=== PATIENT | female | born 1975 | race Caucasian/White ===

== ENCOUNTER 2017-03-02 18:36 | Inpatient (IN) | payer BC ==
[~2017-03-02] VITALS: Ht 170.2 cm; Wt 79.5 kg
[2017-03-02] MEDS: D5%-LACTATED RINGERS 1,000 ML IV SCH (19:18)
[2017-03-02] MEDS ORDERED: OXYTOCIN 30U/ 0.9% NaCL 500ML 500 ML IV ONE (19:18)
[2017-03-02] MEDS ORDERED: OXYTOCIN 30U/ 0.9% NaCL 500ML 500 ML IV PRN (19:18)
[2017-03-02] MEDS ORDERED: AMPICILLIN 2 GM in SODIUM CHLORIDE 0.9% 100 ML IVPB STA (19:18)
[2017-03-02] MEDS ORDERED: NEWBORN KIT ONE (19:27)
[2017-03-02] MEDS ORDERED: LIDOCAINE 1%, 20ML ONE (19:27)
[2017-03-02] MEDS ORDERED: OXYTOCIN 30U/ 0.9% NaCL 500ML 500 ML ONE (19:27)
[2017-03-02] MEDS ORDERED: MISOPROSTOL 200 MCG TABLET ONE (19:28)
[2017-03-02] MEDS ORDERED: FENTANYL PF 100 MCG/2ML IV PRN (19:30)
[2017-03-02] MEDS ORDERED: ONDANSETRON 2MG/ML, 2ML IVPush PRN (19:30)
[2017-03-02] MEDS: PLEASE ENTER HEIGHT AND WEIGHT MC SCH (19:30)
[2017-03-02] MEDS ORDERED: FENTANYL PF 100 MCG/2ML IVPush PRN (19:30)
[2017-03-02] MEDS ORDERED: CALCIUM CARBONATE 500 MG TAB.CHEW PO PRN (19:30)
[2017-03-02] MEDS: LACTATED RINGERS 1,000 ML IV SCH ×2 (20:03→21:38)
[2017-03-02 20:09] LABS: ASPARTATE AMINO TRANSFERASE 23 U/L (15-37); BLOOD UREA NITROGEN 10 mg/dL (7-18)
[2017-03-02] MEDS ORDERED: FENTANYL PF 100 MCG/2ML ONE (20:50)
[2017-03-02] MEDS ORDERED: FENTANYL/BUPIV./NS/PF 250 ML EPIDCONT ONE (20:50)
[2017-03-02] MEDS ORDERED: BUPIVACAINE 0.25% ONE ×2 (20:50→20:52)
[2017-03-02] MEDS ORDERED: LIDOCAINE/PF 1.5%-EPI 1:200K, 30ML ONE (20:52)
[2017-03-02] MEDS ORDERED: FENTANYL/BUPIV./NS/PF 250 ML EPIDCONT SCH (21:38)
[2017-03-02] MEDS ORDERED: LACTATED RINGERS 1,000 ML IVBOLUS PRN (22:00)
[2017-03-02] MEDS: AMPICILLIN 1 GM in SODIUM CHLORIDE 0.9% 50 ML IVPB SCH (23:15)
[2017-03-02] MEDS: PLEASE ENTER ALLERGIES MC SCH ×2 (23:45)
[2017-03-02] MEDS ORDERED: OXYTOCIN 30U/ 0.9% NaCL 500ML 500 ML IV SCH (23:51)
[2017-03-03] MEDS ORDERED: CARBOPROST TROMETHAMINE 250 MCG/ML, 1ML IM PRN
[2017-03-03] MEDS ORDERED: IBUPROFEN 600 MG TABLET PO PRN
[2017-03-03] MEDS ORDERED: ACETAMINOPHEN 325 MG TABLET PO PRN
[2017-03-03] MEDS ORDERED: ONDANSETRON 2MG/ML, 2ML IV PRN
[2017-03-03] MEDS ORDERED: METHYLERGONOVINE 0.2 MG/ML IM PRN
[2017-03-03] MEDS ORDERED: CALCIUM CARBONATE 500 MG TAB.CHEW PO PRN
[2017-03-03] MEDS ORDERED: MISOPROSTOL 200 MCG TABLET PR PRN
[2017-03-03] MEDS ORDERED: HYDROcodone/APAP 5/325 TABLET PO PRN ×2
[2017-03-03] MEDS ORDERED: OXYTOCIN 30U/ 0.9% NaCL 500ML 500 ML ONE (00:39)
[2017-03-03] MEDS: PLEASE ENTER ALLERGIES MC SCH ×18 (00:45→08:45)
[2017-03-03] MEDS ORDERED: IBUPROFEN 600 MG TABLET ONE (00:51)
[2017-03-03 01:26] VITALS: BP 104/58
[2017-03-03 02:10] VITALS: BP 125/60
[2017-03-03] MEDS: AMPICILLIN 1 GM in SODIUM CHLORIDE 0.9% 50 ML IVPB SCH ×2 (03:15→07:15)
[2017-03-03] MEDS: D5%-LACTATED RINGERS 1,000 ML IV SCH (03:18)
[2017-03-03] MEDS: PLEASE ENTER HEIGHT AND WEIGHT MC SCH (03:30)
[2017-03-03] MEDS: LACTATED RINGERS 1,000 ML IV SCH ×2 (04:15→05:38)
[2017-03-03 07:55] VITALS: BP 117/61
[2017-03-03] MEDS: DOCUSATE 100 MG CAPSULE PO PRN (08:02)
[2017-03-03] MEDS: PRENATAL VIT/IRON/FA 1 EACH TABLET PO SCH (08:02)
[2017-03-03] MEDS ORDERED: HYDR-3240 PO (12:14)
[2017-03-03] MEDS ORDERED: IBUP-1222 PO (12:15)
[2017-03-03 20:30] VITALS: BP 131/66
[2017-03-04 00:10] VITALS: BP 95/51
[2017-03-04 08:00] VITALS: BP 108/63
[2017-03-04] MEDS: PRENATAL VIT/IRON/FA 1 EACH TABLET PO SCH (08:01)
[2017-03-04] MEDS: DOCUSATE 100 MG CAPSULE PO PRN (08:01)
== END 2017-03-04 12:51 | disposition home or self-care (01) | DRG 775 ==
LOC: LDOP 18:36 → LDIP 19:18 → 2NW 03-03 01:59
PROVIDERS: ADMIT Obstetrics & Gynecology; ATTEND Obstetrics & Gynecology
PROC: 10E0XZZ Delivery of Products of Conception, External Approach (ICD-10-PCS; principal; 2017-03-02)
PROC: 00HU33Z Insertion of Infusion Device into Spinal Canal, Percutaneous Approach (ICD-10-PCS; 2017-03-02)
PROC: 3E0R3CZ (ICD-10-PCS; 2017-03-02)
DX: O99.824 Streptococcus B carrier state complicating childbirth (principal); Z37.0 Single live birth; Z3A.39 39 weeks gestation of pregnancy; O12.04 Gestational edema, complicating childbirth; O26.893 Other specified pregnancy related conditions, third trimester; R03.0 Elevated blood-pressure reading, without diagnosis of hypertension
CPT/HCPCS: 36415; 80053; 81001; 84550; 85025; 86850; 86900; J0290; J3490; J2590; J3010; J7120

== ENCOUNTER 2018-08-27 08:00 | Inpatient (IN) | payer BC ==
[~2018-08-27] VITALS: Ht 170.2 cm; Wt 77.3 kg
[2018-08-27 07:52] VITALS: BP 128/75
[~2018-08-27 08:00] MED LIST: HYDR-3240 PO; IBUP-1222 PO
[2018-08-27] MEDS ORDERED: OXYTOCIN 30U/ 0.9% NaCL 500ML 500 ML ONE ×2 (13:53→20:40)
[2018-08-27 14:00] VITALS: BP 103/57
[2018-08-27] MEDS ORDERED: LACTATED RINGERS 1,000 ML IV SCH (14:03)
[2018-08-27] MEDS ORDERED: OXYTOCIN 30U/ 0.9% NaCL 500ML 500 ML IV PRN (14:03)
[2018-08-27] MEDS ORDERED: D5%-LACTATED RINGERS 1,000 ML IV SCH (14:03)
[2018-08-27] MEDS ORDERED: OXYTOCIN 30U/ 0.9% NaCL 500ML 500 ML IV ONE (14:03)
[2018-08-27] MEDS ORDERED: TERBUTALINE 1 MG/ML, 1ML IVPush PRN (14:30)
[2018-08-27] MEDS ORDERED: FENTANYL PF 100 MCG/2ML IVPush PRN (14:30)
[2018-08-27] MEDS ORDERED: FENTANYL PF 100 MCG/2ML IV PRN (14:30)
[2018-08-27 16:04] LABS: MICROSCOPIC AUTO
[2018-08-27] MEDS ORDERED: AMPICILLIN 2 GM in SODIUM CHLORIDE 0.9% 100 ML IV SCH (19:00)
[2018-08-27] MEDS: OXYTOCIN 30U/ 0.9% NaCL 500ML 500 ML IV SCH (19:17)
[2018-08-27] MEDS ORDERED: DOCUSATE 100 MG CAPSULE PO PRN (19:30)
[2018-08-27] MEDS ORDERED: MISOPROSTOL 200 MCG TABLET PR PRN (19:30)
[2018-08-27] MEDS ORDERED: ONDANSETRON 2MG/ML, 2ML IV PRN (19:30)
[2018-08-27] MEDS ORDERED: BISACODYL 10 MG SUPP PR PRN (19:30)
[2018-08-27] MEDS ORDERED: GLYCERIN ADULT SUPP PR PRN (19:30)
[2018-08-27] MEDS ORDERED: OXYcodone IR 5MG TABLET PO PRN (19:30)
[2018-08-27] MEDS ORDERED: ACETAMINOPHEN 325 MG TABLET PO PRN ×2 (19:30)
[2018-08-27] MEDS ORDERED: METOCLOPRAMIDE 5 MG/ML, 2ML IV PRN (19:30)
[2018-08-27] MEDS ORDERED: METHYLERGONOVINE 0.2 MG/ML IM PRN (19:30)
[2018-08-27] MEDS ORDERED: CARBOPROST TROMETHAMINE 250 MCG/ML, 1ML IM PRN (19:30)
[2018-08-27] MEDS ORDERED: OXYcodone/APAP 5/325MG TABLET PO PRN (19:30)
[2018-08-27] MEDS ORDERED: NEWBORN KIT ONE (19:51)
[2018-08-27] MEDS ORDERED: IBUPROFEN 600 MG TABLET ONE (20:10)
[2018-08-27] MEDS: IBUPROFEN 600 MG TABLET PO PRN (20:12)
[2018-08-27 22:10] VITALS: BP 108/65
[2018-08-28] MEDS: IBUPROFEN 600 MG TABLET PO PRN (01:41)
[2018-08-28 01:50] VITALS: BP 113/63
[2018-08-28 05:15] VITALS: BP 110/69
[2018-08-28] MEDS: OXYTOCIN 30U/ 0.9% NaCL 500ML 500 ML IV SCH (05:17)
[2018-08-28 07:24] VITALS: BP 102/64
[2018-08-28 07:31] LABS: BASOPHILS # (AUTO) 0.01 x10^3/uL (0-0.1); BASOPHILS % (AUTO) 0 % (0-1); EOSINOPHILS # (AUTO) 0.03 x10^3/uL (0-0.4); EOSINOPHILS % (AUTO) 0 % (1-7); LYMPHOCYTES # (AUTO) 1.44 x10^3/uL (1-3.4); LYMPHOCYTES % (AUTO) 13 % (22-44); MD NO; MEAN CORPUSCULAR HEMOGLOBIN 33.3 pg (27.0-34.8); MEAN CORPUSCULAR HGB CONC 34.2 g/dL (32.4-35.8); MEAN CORPUSCULAR VOLUME 97.3 fL (80-100); MEAN PLATELET VOLUME 9.5 fL (7.4-10.4); MONOCYTES # (AUTO) 0.49 x10^3/uL (0.2-0.8); MONOCYTES % (AUTO) 4 % (2-9); NEUTROPHILS # (AUTO) 9.12 x10^3/uL (1.8-6.8); NEUTROPHILS % (AUTO) 82 % (42-75); PLATELET COUNT 130 x10^3/uL (130-400); RED BLOOD COUNT 3.97 x10^6/uL (3.82-5.3); RED CELL DISTRIBUTION WIDTH 13.3 % (9.6-15.2)
[2018-08-28] MEDS ORDERED: PRENATAL VIT/IRON/FA 1 EACH TABLET PO SCH (09:00)
== END 2018-08-28 19:10 | disposition home or self-care (01) | DRG 807 ==
LOC: LDOP 08:00 → LDIP 14:18 → 2NW 22:01 → EDSTATUS 09-05 07:59
PROVIDERS: ADMIT Obstetrics & Gynecology; ATTEND Obstetrics & Gynecology
PROC: 10E0XZZ Delivery of Products of Conception, External Approach (ICD-10-PCS; principal; 2018-08-27)
DX: O76 Abnormality in fetal heart rate and rhythm complicating labor and delivery (principal); Z37.0 Single live birth; O42.92 Full-term premature rupture of membranes, unspecified as to length of time between rupture and onset of labor; E03.9 Hypothyroidism, unspecified; O99.284 Endocrine, nutritional and metabolic diseases complicating childbirth; O69.81X0 Labor and delivery complicated by cord around neck, without compression, not applicable or unspecified; Z3A.38 38 weeks gestation of pregnancy; Z87.410 Personal history of cervical dysplasia
CPT/HCPCS: 36415; 76815; 81001; 84112; 85025; 86850; 86900; 87077; 87086; 89060; G0378; J0290; J2590; J7120; Q0114

== ENCOUNTER 2019-12-03 19:21 | Inpatient (IN) | payer BC ==
[2019-12-03] MEDS ORDERED: LACTATED RINGERS 1,000 ML IV SCH ×3 (20:13→20:57)
[2019-12-03] MEDS ORDERED: OXYTOCIN 30U/ 0.9% NaCL 500ML 500 ML IV ONE (20:13)
[2019-12-03] MEDS ORDERED: AMPICILLIN 2 GM in SODIUM CHLORIDE 0.9% 100 ML IVPB STA (20:13)
[2019-12-03] MEDS ORDERED: OXYTOCIN 30U/ 0.9% NaCL 500ML 500 ML IV PRN (20:13)
[2019-12-03] MEDS ORDERED: TERBUTALINE 1 MG/ML, 1ML IVPush PRN (20:30)
[2019-12-03] MEDS ORDERED: TERBUTALINE 1 MG/ML, 1ML SQ PRN (20:30)
[2019-12-03] MEDS ORDERED: FENTANYL PF 100 MCG/2ML IVPush PRN (20:30)
[2019-12-03] MEDS ORDERED: SODIUM CITRATE/CITRIC ACID 30 ML UDC PO PRN (20:30)
[2019-12-03] MEDS ORDERED: LACTATED RINGERS 1,000 ML IVBOLUS PRN ×2 (20:30→21:00)
[2019-12-03] MEDS ORDERED: METOCLOPRAMIDE 5 MG/ML, 2ML IVPush PRN (20:30)
[2019-12-03] MEDS ORDERED: EPHEDRINE 50 MG/ML, 1ML IVPush PRN ×2 (20:30→21:00)
[2019-12-03] MEDS ORDERED: FENTANYL PF 100 MCG/2ML IV PRN (20:30)
[2019-12-03] MEDS ORDERED: FENTANYL PF 500 MCG, BUPIVACAINE/PF 0.5%, 30ML 62.5 ML in SODIUM CHLORIDE 0.9% 177.5 ML IV SCH (20:30)
[2019-12-03 20:45] LABS: BASOPHILS # (AUTO) 0.03 x10^3/uL (0-0.1); BASOPHILS % (AUTO) 0 % (0-1); EOSINOPHILS % (AUTO) 1 % (1-7); LYMPHOCYTES # (AUTO) 2.04 x10^3/uL (1-3.4); LYMPHOCYTES % (AUTO) 22 % (22-44); MD NO; MEAN CORPUSCULAR HEMOGLOBIN 33.6 pg (27.0-34.8); MEAN CORPUSCULAR HGB CONC 34.3 g/dL (32.4-35.8); MEAN CORPUSCULAR VOLUME 97.9 fL (80-100); MONOCYTES # (AUTO) 0.51 x10^3/uL (0.2-0.8); MONOCYTES % (AUTO) 6 % (2-9); NEUTROPHILS # (AUTO) 6.62 x10^3/uL (1.8-6.8); NEUTROPHILS % (AUTO) 71 % (42-75); PLATELET COUNT 159 x10^3/uL (130-400); RED BLOOD COUNT 4.24 x10^6/uL (3.82-5.3); RED CELL DISTRIBUTION WIDTH 13.1 % (9.6-15.2)
[2019-12-03] MEDS ORDERED: FENTANYL PF 500 MCG, BUPIVACAINE/PF 0.5%, 30ML 62.5 ML in SODIUM CHLORIDE 0.9% 177.5 ML EPIDCONT SCH (20:57)
[2019-12-03] MEDS ORDERED: AMPICILLIN 2 GM in SODIUM CHLORIDE 0.9% 100 ML IVPB ONE (21:00)
[2019-12-03] MEDS ORDERED: NALOXONE 0.4 MG/ML, 1ML IVPush PRN (21:00)
[2019-12-03] MEDS ORDERED: OXYTOCIN 30U/ 0.9% NaCL 500ML 500 ML ONE ×2 (21:29→23:21)
[2019-12-03] MEDS ORDERED: NEWBORN KIT ONE ×2 (21:37→21:53)
[2019-12-03] MEDS: OXYTOCIN 30U/ 0.9% NaCL 500ML 500 ML IV SCH (22:07)
[2019-12-03] MEDS ORDERED: SIMETHICONE 80 MG CHEW TAB PO PRN (22:30)
[2019-12-03] MEDS ORDERED: HYDROcodone/APAP 5/325 TABLET PO PRN ×2 (22:30)
[2019-12-03] MEDS ORDERED: ONDANSETRON 2MG/ML, 2ML IV PRN (22:30)
[2019-12-03] MEDS ORDERED: MISOPROSTOL 200 MCG TABLET PR PRN (22:30)
[2019-12-03] MEDS ORDERED: IBUPROFEN 600 MG TABLET PO PRN (22:30)
[2019-12-03] MEDS ORDERED: CALCIUM CARBONATE 500 MG TAB.CHEW PO PRN (22:30)
[2019-12-03] MEDS ORDERED: TRANEXAMIC ACID 100 MG/ML, 10ML IV ONE (22:30)
[2019-12-03] MEDS ORDERED: CARBOPROST TROMETHAMINE 250 MCG/ML, 1ML IM PRN (22:30)
[2019-12-03] MEDS ORDERED: ACETAMINOPHEN 325 MG TABLET PO PRN (22:30)
[2019-12-03] MEDS ORDERED: METHYLERGONOVINE 0.2 MG/ML IM PRN (22:30)
[2019-12-03 23:45] VITALS: BP 115/61
[2019-12-04] MEDS ORDERED: AMPICILLIN 1 GM in SODIUM CHLORIDE 0.9% 50 ML IVPB SCH (00:30)
[2019-12-04 04:15] VITALS: BP 125/76
[2019-12-04 06:14] LABS: BASOPHILS # (AUTO) 0.04 x10^3/uL (0-0.1); BASOPHILS % (AUTO) 0 % (0-1); EOSINOPHILS # (AUTO) 0.12 x10^3/uL (0-0.4); EOSINOPHILS % (AUTO) 1 % (1-7); LYMPHOCYTES # (AUTO) 1.79 x10^3/uL (1-3.4); LYMPHOCYTES % (AUTO) 16 % (22-44); MD NO; MEAN CORPUSCULAR HEMOGLOBIN 33.5 pg (27.0-34.8); MEAN CORPUSCULAR HGB CONC 34.2 g/dL (32.4-35.8); MEAN CORPUSCULAR VOLUME 97.9 fL (80-100); MEAN PLATELET VOLUME 8.7 fL (7.4-10.4); MONOCYTES # (AUTO) 0.49 x10^3/uL (0.2-0.8); MONOCYTES % (AUTO) 4 % (2-9); NEUTROPHILS # (AUTO) 8.98 x10^3/uL (1.8-6.8); NEUTROPHILS % (AUTO) 79 % (42-75); PLATELET COUNT 135 x10^3/uL (130-400); RED BLOOD COUNT 4.06 x10^6/uL (3.82-5.3); RED CELL DISTRIBUTION WIDTH 13.4 % (9.6-15.2)
[2019-12-04] MEDS: OXYTOCIN 30U/ 0.9% NaCL 500ML 500 ML IV SCH ×2 (08:07→18:07)
[2019-12-04 08:18] VITALS: BP 134/84
[2019-12-04] MEDS: PRENATAL VIT/IRON/FA 1 EACH TABLET PO SCH (08:29)
[2019-12-04] MEDS: DOCUSATE 100 MG CAPSULE PO PRN (08:29)
[2019-12-04 17:40] VITALS: BP 122/72
[2019-12-04 19:25] VITALS: BP 126/79
[2019-12-05] MEDS: OXYTOCIN 30U/ 0.9% NaCL 500ML 500 ML IV SCH (04:07)
[2019-12-05 08:55] VITALS: BP 114/61
[2019-12-05] MEDS: PRENATAL VIT/IRON/FA 1 EACH TABLET PO SCH (09:12)
[2019-12-05] MEDS: DOCUSATE 100 MG CAPSULE PO PRN (09:23)
== END 2019-12-05 15:30 | disposition home or self-care (01) | DRG 807 ==
LOC: LDOP 19:21 → LDIP 20:07 → UNDODISIN 23:38 → 2NW 23:38
PROVIDERS: ADMIT Obstetrics & Gynecology; ATTEND Obstetrics & Gynecology
PROC: 10E0XZZ Delivery of Products of Conception, External Approach (ICD-10-PCS; principal; 2019-12-03)
PROC: 3E0R3BZ Introduction of Anesthetic Agent into Spinal Canal, Percutaneous Approach (ICD-10-PCS; 2019-12-03)
PROC: 00HU33Z Insertion of Infusion Device into Spinal Canal, Percutaneous Approach (ICD-10-PCS; 2019-12-03)
DX: O62.3 Precipitate labor (principal); Z37.0 Single live birth; O99.824 Streptococcus B carrier state complicating childbirth; Z3A.40 40 weeks gestation of pregnancy
CPT/HCPCS: 36415; 99285; S0020; 85025; 86592; 86850; 86900; G0378; J0290; J3010; J2590; J7050; J7120